=== PATIENT | female | born 1960 | race Caucasian/White ===

== ENCOUNTER → 2016-10-29 | Outpatient (CLI) | payer OTHER ==
[~2016-10-29] MED LIST: [UNRECOGNIZED DRUG - REMARK]
--- NOTE | 2016-10-29 20:01 | Diagnostic Imaging Report ---
INDICATION: Followup for abnormal findings on previous mammogram. EXAMINATION: Right breast diagnostic mammogram dated 10/29/2016 Comparison made to 04/11/2016 as well as 01/07/2015, and 07/24/2013 The current study was also evaluated with a Computer Aided Detection (CAD) system. FINDINGS: The right breast was reevaluated with spot compression imaging and true lateral view of the right breast at the site of previous concern. The area in question is no longer seen and findings felt to be caused by overlapping fibroglandular tissue. The patient should return for her bilateral screening which should be performed in March of this year. IMPRESSION: 1. No mammographic evidence for malignancy with previously questioned area no longer present and likely caused by overlapping fibroglandular tissues. ACR BI-RADS Category 2: Benign findings. Result letter will be mailed to the patient. Note: At least 10% of breast cancer is not imaged by mammography. Dictated by: Dictated on workstation # [id number]
== END ==
LOC: RAD 10:05
PROVIDERS: ATTEND Nurse Practitioner Family
DX: R92.8 Other abnormal and inconclusive findings on diagnostic imaging of breast (principal)

== ENCOUNTER 2017-03-08 11:54 | Emergency (ER) | payer OTHER ==
[~2017-03-08] VITALS: Ht 175.3 cm; Wt 72.0 kg
[~2017-03-08 11:54] MED LIST changes: -ASPI-860 PO; -ATOR20TA54 PO; -CA C1TAB81 PO; -CHOL10002 PO; -ESCI20TA39 PO; -LEVO88TA4 PO; -MAGN400C PO; -METO-270 PO; -MULT-954 PO; -TRU BIOTICS PO
--- OUTSIDE RECORDS SUMMARY | 2017-03-08 12:00 | XMS REPORT | Continuity of Care Document ---
Author Author [facility] Address Unknown Phone Unavailable Allergies Active Description Code Type Severity Reaction Onset Reported/Identified Relationship to Patient Clinical Status Yes No Known Drug Allergies [id number] Drug Allergy Unknown N/ A 10/07/2014 Medications Problems Date Dx Coded Attending Type Code Diagnosis Diagnosed By 12/01/2014 JAGUAR NINA, TERRI Ot 723.1 12/01/2014 JAGUAR NINA, TERRI Ot 847.0 12/01/2014 JAGUAR NINA, TERRI Ot E812.0 12/01/2014 JAGUAR NINA, TERRI Ot E849.5 12/15/2014 Ot V76.12 12/15/2014 Ot 793.82 12/15/2014 Ot 733.90 12/15/2014 Ot 793.89 01/24/2015 Ot 244.9 01/24/2015 Ot 565.1 01/24/2015 Ot 733.90 01/24/2015 Ot 790.29 01/24/2015 Ot V72.31 01/24/2015 Ot V77.91 01/31/2015 Ot 611.72 04/14/2015 Ot V76.12 04/14/2015 Ot 793.82 04/14/2015 Ot 733.90 04/14/2015 Ot 793.89 04/14/2015 Ot 611.72 04/14/2015 Ot 244.9 04/14/2015 Ot 565.1 04/14/2015 Ot 733.90 04/14/2015 Ot 790.29 04/14/2015 Ot V72.31 04/14/2015 Ot V77.91 07/14/2015 Ot V76.12 07/14/2015 Ot 793.82 07/14/2015 Ot 733.90 07/14/2015 Ot 793.89 07/14/2015 Ot 611.72 07/14/2015 Ot 244.9 07/14/2015 Ot 565.1 07/14/2015 Ot 733.90 07/14/2015 Ot 790.29 07/14/2015 Ot V72.31 07/14/2015 Ot V77.91 02/07/2016 TERRI MONTESINOS MD Ot 723.1 CERVICALGIA 02/07/2016 TERRI MONTESINOS MD Ot 847.0 SPRAIN OF NECK 02/07/2016 TERRI MONTESINOS MD Ot E812.0 MV COLLISION NOS-EXAMINATION PROCTOR 02/07/2016 TERRI MONTESINOS MD Ot E849.[address] ACC[address]RE[address]/HIGHWAY 02/07/2016 TERRI MONTESINOS MD Ot 723.1 CERVICALGIA 02/07/2016 TERRI MONTESINOS MD Ot 847.0 SPRAIN OF NECK 02/07/2016 TERRI MONTESINOS MD Ot E812.0 MV COLLISION NOS-EXAMINATION PROCTOR 02/07/2016 TERRI MONTESINOS MD Ot E849.[address]/HIGHWAY 02/07/2016 TERRI MONTESINOS MD Ot 723.1 CERVICALGIA 02/07/2016 TERRI MONTESINOS MD Ot 724.5 BACKACHE NOS 02/07/2016 TERRI MONTESINOS MD Ot 729.5 PAIN IN LIMB 02/07/2016 TERRI MONTESINOS MD Ot 789.00 ABDOMINAL PAIN, UNSPECIFIED SITE 02/07/2016 TERRI MONTESINOS MD Ot E812.0 MV COLLISION NOS-EXAMINATION PROCTOR 02/07/2016 TERRI MONTESINOS MD Ot 723.1 CERVICALGIA 02/07/2016 TERRI MONTESINOS MD Ot 724.5 BACKACHE NOS 02/07/2016 TERRI MONTESINOS MD Ot 729.5 PAIN IN LIMB 02/07/2016 JAGUAR NINA, TERRI Ot 789.00 ABDOMINAL PAIN, UNSPECIFIED SITE 02/07/2016 TERRI MONTESINOS MD Ot E812.0 MV COLLISION NOS-EXAMINATION PROCTOR 04/11/2016 JOANNA PATEL MD Ot V76.12 OTH SCREEN MAMMO-MALIGN NEOPLASM OF MACY 04/11/2016 JOANNA PATEL MD Ot 610.0 SOLITARY CYST OF BREAST 04/11/2016 JOANNA PATEL MD Ot 611.72 LUMP OR MASS IN BREAST 04/11/2016 JOANNA PATEL MD Ot 611.79 SYMPTOMS IN BREAST NEC 04/11/2016 JOANNA PATEL MD Ot V16.3 FAMILY HX-BREAST MALIG 04/11/2016 TERRI MONTESINOS MD Ot 723.1 CERVICALGIA 04/11/2016 TERRI MONTESINOS MD Ot 847.0 SPRAIN OF NECK 04/11/2016 TERRI MONTESINOS MD Ot E812.0 MV COLLISION NOS-EXAMINATION PROCTOR 04/11/2016 TERRI MONTESINOS MD Ot E849.[address]/HIGHWAY 04/11/2016 TERRI MONTESINOS MD Ot 723.1 CERVICALGIA 04/11/2016 TERRI MONTESINOS MD Ot 724.5 BACKACHE NOS 04/11/2016 TERRI MONTESINOS MD Ot 729.5 PAIN IN LIMB 04/11/2016 TERRI MONTESINOS MD Ot 789.00 ABDOMINAL PAIN, UNSPECIFIED SITE 04/11/2016 TERRI MONTESINOS MD Ot E812.0 MV COLLISION NOS-EXAMINATION PROCTOR 04/11/2016 Ot 729.1 MYALGIA AND MYOSITIS NOS 04/11/2016 Ot 780.60 FEVER, UNSPECIFIED 04/17/2016 WILGERS, CHAS L PEACE OFFICER Ot M85.80 OTH DISRD OF BONE DENSITY AND STRUCTURE, 04/17/2016 WILGERS, CHAS L PEACE OFFICER Ot M85.89 OTH DISRD OF BONE DENSITY AND STRUCTURE, 04/17/2016 WILGERS, CHAS L PEACE OFFICER Ot R92.2 INCONCLUSIVE MAMMOGRAM 04/17/2016 WILGERS, CHAS L PEACE OFFICER Ot Z12.31 ENCNTR SCREEN MAMMOGRAM FOR MALIGNANT NE 04/27/2016 WILGERS, CHAS L PEACE OFFICER Ot M85.80 OTH DISRD OF BONE DENSITY AND STRUCTURE, 04/27/2016 WILGERS, CHAS L PEACE OFFICER Ot M85.89 OTH DISRD OF BONE DENSITY AND STRUCTURE, 04/27/2016 WILGERS, CHAS L PEACE OFFICER Ot R92.2 INCONCLUSIVE MAMMOGRAM 04/27/2016 WILGERS, CHAS L PEACE OFFICER Ot Z12.31 ENCNTR SCREEN MAMMOGRAM FOR MALIGNANT NE 05/07/2016 WILGERS, CHAS L PEACE OFFICER Ot R06.09 OTHER FORMS OF DYSPNEA 08/02/2016 TERRI MONTESINOS MD Ot 723.1 CERVICALGIA 08/02/2016 TERRI MONTESINOS MD Ot 847.0 SPRAIN OF NECK 08/02/2016 TERRI MONTESINOS MD Ot E812.0 MV COLLISION NOS-EXAMINATION PROCTOR 08/02/2016 TERRI MONTESINOS MD Ot E849.[address]/HIGHWAY 08/02/2016 TERRI MONTESINOS MD Ot 723.1 CERVICALGIA 08/02/2016 TERRI MONTESINOS MD Ot 724.5 BACKACHE NOS 08/02/2016 JAGUAR NINA, TERRI Ot 729.5 PAIN IN LIMB 08/02/2016 JAGUAR NINA, TERRI Ot 789.00 ABDOMINAL PAIN, UNSPECIFIED SITE 08/02/2016 JAGUAR NINA, TERRI Ot E812.0 MV COLLISION NOS-EXAMINATION PROCTOR 08/06/2016 BENJAMIN NARANJO S PEACE OFFICER Ot M25.561 PAIN IN RIGHT KNEE 08/06/2016 KANFABIOLA BENJAMIN S PEACE OFFICER Ot M25.562 PAIN IN LEFT KNEE 08/06/2016 KANFABIOLA BNEJAMIN S PEACE OFFICER Ot W19.XXXA UNSPECIFIED FALL, INITIAL ENCOUNTER 08/07/2016 KANMARY HICKSE S PEACE OFFICER Ot M25.561 PAIN IN RIGHT KNEE 08/07/2016 KANMARY HICKSE S PEACE OFFICER Ot M25.562 PAIN IN LEFT KNEE 08/07/2016 MARCELLA BENJAMIN S PEACE OFFICER Ot W19.XXXA UNSPECIFIED FALL, INITIAL ENCOUNTER 08/08/2016 KANMARY HICKSE S PEACE OFFICER Ot M25.561 PAIN IN RIGHT KNEE 08/08/2016 KANFABIOLA BENJAMIN S PEACE OFFICER Ot M25.562 PAIN IN LEFT KNEE 08/08/2016 MARY NARANJOE S PEACE OFFICER Ot W19.XXXA UNSPECIFIED FALL, INITIAL ENCOUNTER 08/15/2016 MARY NARANJOE S PEACE OFFICER Ot M25.561 PAIN IN RIGHT KNEE 08/15/2016 MARCELLA BENJAMIN S PEACE OFFICER Ot M25.562 PAIN IN LEFT KNEE 08/15/2016 MARCELLA BENJAMIN S PEACE OFFICER Ot W19.XXXA UNSPECIFIED FALL, INITIAL ENCOUNTER 08/16/2016 JAGUAR NINA, TERRI Ot 723.1 CERVICALGIA 08/16/2016 JAGUAR NINA, TERRI Ot 847.0 SPRAIN OF NECK 08/16/2016 JAGUAR NINA, TERRI Ot E812.0 MV COLLISION NOS-EXAMINATION PROCTOR 08/16/2016 TERRI MONTESINOS MD Ot E849.[address]/HIGHWAY 08/16/2016 JAGUAR NINA, TERRI Ot 723.1 CERVICALGIA 08/16/2016 TERRI MONTESINOS MD Ot 724.5 BACKACHE NOS 08/16/2016 TERRI MONTESINOS MD Ot 729.5 PAIN IN LIMB 08/16/2016 TERRI MONTESINOS MD Ot 789.00 ABDOMINAL PAIN, UNSPECIFIED SITE 08/16/2016 JAGUAR NINA, TERRI Ot E812.0 MV COLLISION NOS-EXAMINATION PROCTOR 08/16/2016 TERRI MONTESINOS MD Ot 723.1 CERVICALGIA 08/16/2016 TERRI MONTESINOS MD Ot 847.0 SPRAIN OF NECK 08/16/2016 TERRI MONTESINOS MD Ot E812.0 MV COLLISION NOS-EXAMINATION PROCTOR 08/16/2016 JAGUAR NINA, TERRI Ot E849.[address] ACC[address]RE[address]/HIGHWAY 08/16/2016 TERRI MONTESINOS MD Ot 723.1 CERVICALGIA 08/16/2016 TERRI MONTESINOS MD Ot 724.5 BACKACHE NOS 08/16/2016 TERRI MONTESINOS MD Ot 729.5 PAIN IN LIMB 08/16/2016 TERRI MONTESINOS MD Ot 789.00 ABDOMINAL PAIN, UNSPECIFIED SITE 08/16/2016 TERRI MONTESINOS MD Ot E812.0 MV COLLISION NOS-EXAMINATION PROCTOR 08/17/2016 STEPHANIE ELLSWORTH PEACE OFFICER Ot M79.641 PAIN IN RIGHT HAND 08/24/2016 BENJAMIN NARANJO PEACE OFFICER Ot M25.561 PAIN IN RIGHT KNEE 08/24/2016 BENJAMIN NARANJO S PEACE OFFICER Ot M25.562 PAIN IN LEFT KNEE 08/24/2016 BENJAMIN NARANJO PEACE OFFICER Ot W19.XXXA UNSPECIFIED FALL, INITIAL ENCOUNTER 08/27/2016 JAGUAR NINA, TERRI Ot 723.1 CERVICALGIA 08/27/2016 TERRI MONTESINOS MD Ot 847.0 SPRAIN OF NECK 08/27/2016 JAGUAR NINA, TERRI Ot E812.0 MV COLLISION NOS-EXAMINATION PROCTOR 08/27/2016 TERRI MONTESINOS MD Ot E849.[address]/HIGHWAY 08/27/2016 TERRI MONTESINOS MD Ot 723.1 CERVICALGIA 08/27/2016 TERRI MONTESINOS MD Ot 724.5 BACKACHE NOS 08/27/2016 TERRI MONTESINOS MD Ot 729.5 PAIN IN LIMB 08/27/2016 TERRI MONTESINOS MD Ot 789.00 ABDOMINAL PAIN, UNSPECIFIED SITE 08/27/2016 TERRI MONTESINOS MD Ot E812.0 MV COLLISION NOS-EXAMINATION PROCTOR 08/27/2016 STEPHANIE ELLSWORTH PEACE OFFICER Ot M79.641 PAIN IN RIGHT HAND 08/30/2016 TERRI MONTESINOS MD Ot 723.1 CERVICALGIA 08/30/2016 JAGUAR NINA, TERRI Ot 847.0 SPRAIN OF NECK 08/30/2016 JAGUAR NINA, TERRI Ot E812.0 MV COLLISION NOS-EXAMINATION PROCTOR 08/30/2016 JAGUAR NINA, TERRI Ot E849.[address] ACC[address]/HIGHWAY 08/30/2016 JAGUAR NINA, TERRI Ot 723.1 CERVICALGIA 08/30/2016 JAGUAR NINA, TERRI Ot 724.5 BACKACHE NOS 08/30/2016 JAGUAR NINA, TERRI Ot 729.5 PAIN IN LIMB 08/30/2016 JAGUAR NINA, TERRI Ot 789.00 ABDOMINAL PAIN, UNSPECIFIED SITE 08/30/2016 JAGUAR NINA, TERRI Ot E812.0 MV COLLISION NOS-EXAMINATION PROCTOR 08/30/2016 SENGSTEPHANIE Enmanuel PEACE OFFICER Ot M79.641 PAIN IN RIGHT HAND 09/17/2016 BENJAMIN NARANJO S PEACE OFFICER Ot M25.561 PAIN IN RIGHT KNEE 09/17/2016 BENJAMIN NARANJO S PEACE OFFICER Ot M25.562 PAIN IN LEFT KNEE 09/17/2016 BENJAMIN NARANJO S PEACE OFFICER Ot W19.XXXA UNSPECIFIED FALL, INITIAL ENCOUNTER 09/17/2016 BENJAMIN NARANJO S PEACE OFFICER Ot M25.561 PAIN IN RIGHT KNEE 09/17/2016 KANMARY HICKSE S PEACE OFFICER Ot M25.562 PAIN IN LEFT KNEE 09/17/2016 BENJAMIN NARANJO S PEACE OFFICER Ot W19.XXXA UNSPECIFIED FALL, INITIAL ENCOUNTER 09/18/2016 MARY NARANJOE S PEACE OFFICER Ot M25.561 PAIN IN RIGHT KNEE 09/18/2016 KANMARY HICKSE S PEACE OFFICER Ot M25.562 PAIN IN LEFT KNEE 09/18/2016 MARY NARANJOE S PEACE OFFICER Ot W19.XXXA UNSPECIFIED FALL, INITIAL ENCOUNTER 09/18/2016 Arron NINA, Anali L Ot R07.9 CHEST PAIN, UNSPECIFIED 09/19/2016 BENJAMIN NARANJO S PEACE OFFICER Ot M25.561 PAIN IN RIGHT KNEE 09/19/2016 BENJAMIN NARANJO S PEACE OFFICER Ot M25.562 PAIN IN LEFT KNEE 09/19/2016 BENJAMIN NARANJO S PEACE OFFICER Ot W19.XXXA UNSPECIFIED FALL, INITIAL ENCOUNTER 09/25/2016 JAGUAR NINA, TERRI Ot 723.1 CERVICALGIA 09/25/2016 JAGUAR NINA, TERRI Ot 847.0 SPRAIN OF NECK 09/25/2016 JAGUAR NINA, TERRI Ot E812.0 MV COLLISION NOS-EXAMINATION PROCTOR 09/25/2016 JAGUAR NINA, TERRI Ot E849.[address] ACCID [address]RE[address]/HIGHWAY 09/25/2016 JAGUAR NINA, TERRI Ot 723.1 CERVICALGIA 09/25/2016 JAGUAR NINA, TERRI Ot 724.5 BACKACHE NOS 09/25/2016 TERRI MONTESINOS MD Ot 729.5 PAIN IN LIMB 09/25/2016 JAGUAR NINA, TERRI Ot 789.00 ABDOMINAL PAIN, UNSPECIFIED SITE 09/25/2016 JAGUAR NINA, TERRI Ot E812.0 MV COLLISION NOS-EXAMINATION PROCTOR 09/25/2016 BENJAMIN NARANJO PEACE OFFICER Ot M25.561 PAIN IN RIGHT KNEE 09/25/2016 BENJAMIN NARANJO PEACE OFFICER Ot M25.562 PAIN IN LEFT KNEE 09/25/2016 BENJAMIN NARANJO PEACE OFFICER Ot W19.XXXA UNSPECIFIED FALL, INITIAL ENCOUNTER 09/25/2016 STEPHANIE ELLSWORTH PEACE OFFICER Ot M79.641 PAIN IN RIGHT HAND 09/25/2016 Arron NINA, Anali L Ot R07.9 CHEST PAIN, UNSPECIFIED 09/27/2016 Arron NINA, Anali L Ot R07.9 CHEST PAIN, UNSPECIFIED 10/02/2016 WILGERSCHAS L PEACE OFFICER Ot E03.8 OTHER SPECIFIED HYPOTHYROIDISM 10/02/2016 WILGERS, CHAS L PEACE OFFICER Ot E78.2 MIXED HYPERLIPIDEMIA 10/11/2016 WILGERS, CHAS L PEACE OFFICER Ot E03.8 OTHER SPECIFIED HYPOTHYROIDISM 10/11/2016 WILGERS, CHAS L PEACE OFFICER Ot E78.2 MIXED HYPERLIPIDEMIA 11/02/2016 WILGERS, CHAS L PEACE OFFICER Ot R92.8 OTH ABN AND INCONCLUSIVE FINDINGS ON DX 11/07/2016 Ot V76.12 OTH SCREEN MAMMO-MALIGN NEOPLASM OF MACY 11/07/2016 Ot 793.82 INCONCLUSIVE MAMMOGRAM 11/07/2016 Ot 733.90 BONE CARTILAGE DIS NOS 11/07/2016 Ot 793.89 OTH (ABN) FINDINGS ON RADIOLOGICAL EXAMI 11/07/2016 Ot 611.72 LUMP OR MASS IN BREAST 11/07/2016 Ot 244.9 HYPOTHYROIDISM NOS 11/07/2016 Ot 565.1 ANAL FISTULA 11/07/2016 Ot 733.90 BONE CARTILAGE DIS NOS 11/07/2016 Ot 790.29 OTHER ABNORMAL GLUCOSE 11/07/2016 Ot V72.31 ROUTINE GYNECOLOGICAL EXAMINATION 11/07/2016 Ot V77.91 SCREEN LIPOID DISORDERS 11/14/2016 Ot V76.12 OTH SCREEN MAMMO-MALIGN NEOPLASM OF MACY 11/14/2016 Ot 793.82 INCONCLUSIVE MAMMOGRAM 11/14/2016 Ot 733.90 BONE CARTILAGE DIS NOS 11/14/2016 Ot 793.89 OTH (ABN) FINDINGS ON RADIOLOGICAL EXAMI 11/14/2016 JORGE NINA, JOANNA Hdz Ot V76.12 OTH SCREEN MAMMO-MALIGN NEOPLASM OF MAYC 11/14/2016 JOANNA PATEL MD Ot 610.0 SOLITARY CYST OF BREAST 11/14/2016 JOANNA PATEL MD Ot 611.72 LUMP OR MASS IN BREAST 11/14/2016 JOANNA PATEL MD Ot 611.79 SYMPTOMS IN BREAST NEC 11/14/2016 JOANNA PATEL MD Ot V16.3 FAMILY HX-BREAST MALIG 11/14/2016 JAGUAR NINA, TERRI Ot 723.1 CERVICALGIA 11/14/2016 JAGUAR NINA, TERRI Ot 847.0 SPRAIN OF NECK 11/14/2016 JAGUAR NINA, TERRI Ot E812.0 MV COLLISION NOS-EXAMINATION PROCTOR 11/14/2016 JAGUAR NINA, TERRI Ot E849.[address] ACC[address]/HIGHWAY 11/14/2016 JAGUAR NINA, TERRI Ot 723.1 CERVICALGIA 11/14/2016 JAGUAR NINA, TERRI Ot 724.5 BACKACHE NOS 11/14/2016 JAGUAR NINA, TERRI Ot 729.5 PAIN IN LIMB 11/14/2016 JAGUAR NINA, TERRI Ot 789.00 ABDOMINAL PAIN, UNSPECIFIED SITE 11/14/2016 JAGUAR NINA, TERRI Ot E812.0 MV COLLISION NOS-EXAMINATION PROCTOR 11/14/2016 Ot 729.1 MYALGIA AND MYOSITIS NOS 11/14/2016 Ot 780.60 FEVER, UNSPECIFIED 11/14/2016 Ot 611.72 LUMP OR MASS IN BREAST 11/14/2016 Ot 244.9 HYPOTHYROIDISM NOS 11/14/2016 Ot 565.1 ANAL FISTULA 11/14/2016 Ot 733.90 BONE CARTILAGE DIS NOS 11/14/2016 Ot 790.29 OTHER ABNORMAL GLUCOSE 11/14/2016 Ot V72.31 ROUTINE GYNECOLOGICAL EXAMINATION 11/14/2016 Ot V77.91 SCREEN LIPOID DISORDERS 11/14/2016 CHAS JENKINS PEACE OFFICER Ot M85.80 OTH DISRD OF BONE DENSITY AND STRUCTURE, 11/14/2016 CHAS JENKINS PEACE OFFICER Ot M85.89 OTH DISRD OF BONE DENSITY AND STRUCTURE, 11/14/2016 CHAS JENKINS PEACE OFFICER Ot R92.2 INCONCLUSIVE MAMMOGRAM 11/14/2016 CHAS JENKINS PEACE OFFICER Ot Z12.31 ENCNTR SCREEN MAMMOGRAM FOR MALIGNANT NE 11/14/2016 CHAS JENKINS PEACE OFFICER Ot R06.09 OTHER FORMS OF DYSPNEA 11/14/2016 KANBENJAMIN HICKS S PEACE OFFICER Ot M25.561 PAIN IN RIGHT KNEE 11/14/2016 KANBENJAMIN HICKS S PEACE OFFICER Ot M25.562 PAIN IN LEFT KNEE 11/14/2016 KANFABIOLA BENJAMIN S PEACE OFFICER Ot W19.XXXA UNSPECIFIED FALL, INITIAL ENCOUNTER 11/14/2016 SENG STEPHANIE P PEACE OFFICER Ot M79.641 PAIN IN RIGHT HAND 11/14/2016 Arron NINA, Anali L Ot R07.9 CHEST PAIN, UNSPECIFIED 11/14/2016 CHAS JENKINS PEACE OFFICER Ot E03.8 OTHER SPECIFIED HYPOTHYROIDISM 11/14/2016 CHAS JENKINS PEACE OFFICER Ot E78.2 MIXED HYPERLIPIDEMIA 11/14/2016 CHAS JENKINS PEACE OFFICER Ot R92.8 OTH ABN AND INCONCLUSIVE FINDINGS ON DX 11/14/2016 JAGUAR NINA, TERRI Ot 723.1 CERVICALGIA 11/14/2016 JAGUAR NINA, TERRI Ot 847.0 SPRAIN OF NECK 11/14/2016 TERRI MONTESINOS MD Ot E812.0 MV COLLISION NOS-EXAMINATION PROCTOR 11/14/2016 TERRI MONTESINOS MD Ot E849.[address]/HIGHWAY 11/14/2016 TERRI MONTESINOS MD Ot 723.1 CERVICALGIA 11/14/2016 TERRI MONTESINOS MD Ot 724.5 BACKACHE NOS 11/14/2016 TERRI MONTESINOS MD Ot 729.5 PAIN IN LIMB 11/14/2016 TERRI MONTESINOS MD Ot 789.00 ABDOMINAL PAIN, UNSPECIFIED SITE 11/14/2016 TERRI MONTESINOS MD Ot E812.0 MV COLLISION NOS-EXAMINATION PROCTOR 11/14/2016 BENJAMIN NARANJO PEACE OFFICER Ot M25.561 PAIN IN RIGHT KNEE 11/14/2016 BENJAMIN NARANJO PEACE OFFICER Ot M25.562 PAIN IN LEFT KNEE 11/14/2016 BENJAMIN NARANJO PEACE OFFICER Ot W19.XXXA UNSPECIFIED FALL, INITIAL ENCOUNTER 11/14/2016 STEPHANIE ELLSWORTH PEACE OFFICER Ot M79.641 PAIN IN RIGHT HAND 11/14/2016 Arron NINA, Anali Fajardo Ot R07.9 CHEST PAIN, UNSPECIFIED 11/14/2016 WILGERSCHAS L PEACE OFFICER Ot E03.8 OTHER SPECIFIED HYPOTHYROIDISM 11/14/2016 WILGERS CHAS L PEACE OFFICER Ot E78.2 MIXED HYPERLIPIDEMIA 11/14/2016 WILGERS CHAS L PEACE OFFICER Ot R92.8 OTH ABN AND INCONCLUSIVE FINDINGS ON DX 11/15/2016 WILGERS CHAS L PEACE OFFICER Ot R92.8 OTH ABN AND INCONCLUSIVE FINDINGS ON DX 03/08/2017 JAGUAR NINA, TERRI Ot 723.1 CERVICALGIA 03/08/2017 JAGUAR NINA, TERRI Ot 847.0 SPRAIN OF NECK 03/08/2017 JAGUAR NINA, TERRI Ot E812.0 MV COLLISION NOS-EXAMINATION PROCTOR 03/08/2017 JAGUAR NINA, TERRI Ot E849.[address] ACC[address]/HIGHWAY 03/08/2017 JAGUAR NINA, TERRI Ot 723.1 CERVICALGIA 03/08/2017 JAGUAR NINA, TERRI Ot 724.5 BACKACHE NOS 03/08/2017 JAGUAR NINA, TERRI Ot 729.5 PAIN IN LIMB 03/08/2017 JAGUAR NINA, TERRI Ot 789.00 ABDOMINAL PAIN, UNSPECIFIED SITE 03/08/2017 JAGUAR NINA, TERRI Ot E812.0 MV COLLISION NOS-EXAMINATION PROCTOR 03/08/2017 BENJAMIN NARANJO PEACE OFFICER Ot M25.561 PAIN IN RIGHT KNEE 03/08/2017 BENJAMIN NARANJO PEACE OFFICER Ot M25.562 PAIN IN LEFT KNEE 03/08/2017 BENJAMIN NARANJO PEACE OFFICER Ot W19.XXXA UNSPECIFIED FALL, INITIAL ENCOUNTER 03/08/2017 STEPHANIE ELLSWORTH PEACE OFFICER Ot M79.641 PAIN IN RIGHT HAND 03/08/2017 Anali Heller MD Ot R07.9 CHEST PAIN, UNSPECIFIED 03/08/2017 WILGERSCHAS PEACE OFFICER Ot E03.8 OTHER SPECIFIED HYPOTHYROIDISM 03/08/2017 CHAS JENKINS PEACE OFFICER Ot E78.2 MIXED HYPERLIPIDEMIA 03/08/2017 CHAS JENKINS PEACE OFFICER Ot R92.8 OTH ABN AND INCONCLUSIVE FINDINGS ON DX Procedures Results Test Result Range Comprehensive metabolic panel - 09/25/16 07:35 Sodium measurement 101 70-110 Carbon dioxide measurement 29 22-29 Serum or plasma anion gap 14.2 3-15 BLOOD UREA NITROGEN 12 7-18 CREATININE SERUM 0.77 0.6-1.2 Brucella species antibody panel (IgG, IgM) 16 10-20 Estimated glomerular filtration rate (GFR) 93.2 Estimated glomerular filtration rate (GFR) non- 77.0 OSMOLALITY,CALCULATED 273 280-300 CALCIUM 9.2 8.8-10.8 Calculated ionized calcium measurement 3.7 3.8-4.6 BILIRUBIN,TOTAL 1.3 0.1-1.0 Serum or plasma alkaline phosphatase measurement 101 38-126 ASPARTATE AMINO TRANSFERASE 67 15-37 ALANINE AMINOTRANSFERASE 75 30-65 Serum or plasma total protein measurement 8.3 6.4-8.5 Serum or plasma albumin measurement 4.6 3.4-5.0 Serum or plasma albumin/globulin mass ratio 1.243 1.1-1.8 THYROID STIMULATING HORMONE* - 09/25/16 07:35 THYROID STIMULATING HORMONE 1.38 0.46- 4.68 LIPID PANEL - 09/25/16 07:35 Cholesterol 130 50-200 HDL Cholesterol 36 40-60 Triglycerides 130 10-150 LDL CHOLESTEROL 68 50-130 VLDL Cholesterol, calc 26 4.00-40.00 Cholesterol.total/Cholesterol.in HDL 3.6 0.0-5.0 Encounters ACCT No. Visit Date/Time Discharge Status Pt. Type Provider Facility Loc./Unit Complaint [id number] 05/09/2015 07:30:00 2014 23:59:59 CLS Preadmit MELANIE NINA, [facility] [id number] 10/07/2014 17:47:00 2013 23:59:59 CLS Emergency JAGUAR NINA, [facility] ED [id number] 10/07/2014 17:35:00 2013 23:59:59 CLS Outpatient JAGUAR NINA, [facility] EMS TRANSPORTED FROM [facility] [place] [facility] [place] [id number] 07/24/2013 12:44:00 2012 23:59:59 CLS Outpatient JORGE NINA, [facility] RAD RIGHT BREAST ASYEMMTRIES----EXTRA VIEWS [id number] 07/17/2013 14:33:00 2012 23:59:59 CLS Outpatient JORGE NINA, [facility] RAD SCREENING V7612 [id number] 03/08/2017 11:56:00 ACT Emergency SEVERIANO NINA, [facility] ED [id number] 10/29/2016 10:05:00 ACT Outpatient [facility] RAD RT DENSITY [id number] 09/25/2016 07:22:00 ACT Outpatient [facility] LAB [id number] 09/07/2016 12:37:00 ACT Outpatient Arron NINA, [facility] RT chest pain [id number] 08/16/2016 09:11:00 ACT Outpatient STEPHANIE ELLSWORTH [facility] RAD [id number] 08/02/2016 14:32:00 ACT Outpatient BENJAMIN NARANJO [facility] RAD [id number] 04/12/2016 06:53:00 ACT Outpatient [facility] RT exeertional dyspnea R06.09 [id number] 04/11/2016 13:34:00 ACT Outpatient [facility] RAD MAMMO SCREENING - Z12.31, OSTEOPENIA - M85.80 [id number] 01/31/2015 12:06:00 Document Registration [id number] 12/30/2014 08:44:00 Document Registration [id number] 12/10/2014 09:39:00 Document Registration [id number] 10/07/2014 22:01:00 Document Registration [id number] 11/10/2012 08:48:00 Document Registration [id number] 05/29/2012 09:21:00 Document Registration [id number] 05/09/2012 09:50:00 Document Registration [id number] 05/05/2012 15:48:00 Document Registration
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
[2017-03-08] MEDS ORDERED: SODIUM CHLORIDE FLUSH 3 ML SYR IV PRN (12:05)
[2017-03-08] MEDS ORDERED: SODIUM CHLORIDE 250 ML IV PRN (12:05)
[2017-03-08] MEDS ORDERED: SODIUM CHLORIDE FLUSH 10 ML SYR IV PRN (12:05)
[2017-03-08] MEDS ORDERED: ONDANSETRON 2 MG/ML (Z0FRAN) 2 ML VIAL IV ONE (12:05)
[2017-03-08] MEDS ORDERED: morphine INJ 4 MG/ML 1 ML SYRINGE IV PRN (12:05)
[2017-03-08] MEDS ORDERED: ASPIRIN 81 MG CHEW (LOW-DOSE) PO ONE (12:05)
[2017-03-08] MEDS ORDERED: NITROGLYCERIN SUBLINGUAL 0.4 MG (NITROQUICK) TABLET SL PRN (12:05)
[2017-03-08 12:22] LABS: BASOPHILS % (AUTO) 1 % (0-2); EOSINOPHILS # (AUTO) 0.1 10^3uL; EOSINOPHILS % (AUTO) 2 % (0-4); MEAN CORPUSCULAR HEMOGLOBIN 29.8 PG (26.0-34.0); MEAN CORPUSCULAR HGB CONC 32.9 g/dL (31.0-37.0); MEAN CORPUSCULAR VOLUME 91 FL (80-100); MEAN PLATELET VOLUME 9.5 FL (6.0-9.5); MONOCYTES # (AUTO) 0.6 X10^3; MONOCYTES % (AUTO) 11 % (3-11); NEUTROPHILS # (AUTO) 2.8 X10^3; NEUTROPHILS % (AUTO) 51 % (51-67); PLATELET COUNT 245 10^3uL (150-450); WHITE BLOOD COUNT 5.55 10^3uL (4.0-11.0)
--- NOTE | 2017-03-08 12:40 | NUR ---
Continues to deny chest discomfort. Denies SOA or nausea. Does not appear to be in any distress. RAYSA. Spouse in room with pt.
[2017-03-08 12:45] LABS: ALBUMIN 4.8 g/dL (3.4-5.0); ALKALINE PHOSPHATASE 89 U/L (38-126); BUN/CREATININE RATIO 15 (10-20); CALCULATED IONIZED CALCIUM 3.6 mg/dL (3.8-4.6); CREATINE KINASE 93 U/L (30-135)
[2017-03-08] MEDS ORDERED: ASPI-860 PO (12:51)
[2017-03-08] MEDS ORDERED: CA C1TAB81 PO (12:51)
[2017-03-08] MEDS ORDERED: ESCI20TA39 PO (12:51)
[2017-03-08] MEDS ORDERED: CHOL10002 PO (12:51)
[2017-03-08] MEDS ORDERED: ATOR20TA54 PO (12:51)
[2017-03-08] MEDS ORDERED: METO-270 PO (12:51)
[2017-03-08] MEDS ORDERED: MULT-954 PO (12:51)
[2017-03-08] MEDS ORDERED: LEVO88TA4 PO (12:51)
[2017-03-08] MEDS ORDERED: MAGN400C PO (12:51)
[2017-03-08] MEDS ORDERED: TRU BIOTICS PO (12:51)
--- NOTE | 2017-03-08 12:59 | NUR ---
Patient continues resting quietly on ER cart. Denies SOA, nausea, or chest discomfort. Using cell phone at intervals. Spouse remains in room with pt.
--- NOTE | 2017-03-08 13:15 | NUR ---
Dr. George has spoken to pt and her about recommendation for transfer to [facility] that he got from physician that is on-call for Dr. Bolton. Pt did agree to transfer and EMS transportation to [facility].
--- NOTE | 2017-03-08 13:17 | NUR ---
Patient up to toilet to urinate after okay obtained from Dr. George.
--- NOTE | 2017-03-08 13:21 | NUR ---
Patient back in bed. Verbalizes understanding of instructions to remain without anythingn to eat or drink.
--- NOTE | 2017-03-08 13:33 | NUR ---
Attempted to call pt rpt to [facility] but receiving nurse busy in pt room.
--- NOTE | 2017-03-08 13:36 | Diagnostic Imaging Report ---
INDICATION: Chest pain. COMPARISON STUDY: None. FINDINGS: Portable upright view of the chest demonstrates the lungs to be clear. Heart, mediastinum and pulmonary vascularity are normal. There is mild to moderate dextroscoliosis of the mid to lower aspect of the thoracic spine. IMPRESSION: Scoliosis is present with no acute findings. Dictated by: Dictated on workstation # [id number]
--- NOTE | 2017-03-08 13:40 | NUR ---
Receiving nurse at [facility] now able to accept pt report.
--- NOTE | 2017-03-08 13:48 | NUR ---
Patient report to Michael Thapa, Chair Caner, with [facility] while EMT begins getting pt ready to transfer.
--- NOTE | 2017-03-08 13:55 | NUR ---
Patient remains without chest discomfort, nausea, SOA, or diaphoresis. Remains Alert/Oriented and talkative.
--- NOTE | 2017-03-08 13:56 | NUR ---
No NTG, MS, Zofran given, NS IVF d/t pt continual denial of chest discomfort and nausea during ED visit.
[2017-03-08 14:20] VITALS: BP 111/64
== END 2017-03-08 13:56 | disposition short-term general hospital (02) ==
LOC: ED 11:56
DX: I25.110 Atherosclerotic heart disease of native coronary artery with unstable angina pectoris (principal); Z95.5 Presence of coronary angioplasty implant and graft
CPT/HCPCS: 36415; 71010; 80053; 82550; 82553; 83880; 84484; 85025; 85610; 85730; 93005; 93010; 99285

== ENCOUNTER → 2017-03-08 | Outpatient (CLI) | payer OTHER ==
[~2017-03-08] MED LIST changes: +ASPI-860 PO; +ATOR20TA54 PO; +CA C1TAB81 PO; +CHOL10002 PO; +ESCI20TA39 PO; +LEVO88TA4 PO; +MAGN400C PO; +METO-270 PO; +MULT-954 PO; +TRU BIOTICS PO
== END ==
LOC: EMS 13:55
PROVIDERS: ATTEND Internal Medicine Cardiovascular Disease
DX: I20.0 Unstable angina (principal)